=== PATIENT | female | born 1970 | race Caucasian/White ===

== ENCOUNTER 2021-03-02 06:49 | Inpatient (IN) | payer OTHER, MEDICAID, SELFPAY ==
[~2021-03-02] VITALS: Ht 162.6 cm; Wt 86.2 kg
[~2021-03-02 06:49] MED LIST: BACL10TA PO; ESCI10TA PO; OMEP20CA15 PO; TRAM50TA PO; trintellix PO
[2021-03-02 06:55] VITALS: BP_SYST 100
--- NOTE | 2021-03-02 07:00 | NUR ---
Patient triaged and placed in waiting room. VSS and patient appears in no acute distress at this time. Accompanied by SELF, awaiting available bed, and MD notified of need for MSE.
--- NOTE | 2021-03-02 07:20 | NUR ---
DR ALMAGUER OUT TO TRIAGE TO EVALUATE PT.
[2021-03-02 08:03] LABS: BASOPHILS % (AUTO) 0.3 % (0.0-2.0); EOSINOPHILS % (AUTO) 0.1 % (0.0-4.0); HEMATOCRIT 40.8 % (36-48); HEMOGLOBIN 13.9 g/dL (12.0-16.0); LYMPHOCYTES # (AUTO) 1.1 K/uL (1.0-5.5); LYMPHOCYTES % (AUTO) 9.9 % (20.5-51.5); MEAN CORPUSCULAR HEMOGLOBIN 33 pg (27-31); MEAN CORPUSCULAR HGB CONC 34 % (32-36); MEAN CORPUSCULAR VOLUME 96 fL (79.0-98.0); MONOCYTES # (AUTO) 0.5 K/uL (0.0-1.0); MONOCYTES % (AUTO) 4.1 % (1.7-9.3); NEUTROPHILS # (AUTO) 9.8 K/uL (1.8-7.7); NEUTROPHILS % (AUTO) 85.6 % (40.0-70.0); PLATELET COUNT (AUTO) 387 K/uL (130-430); RED BLOOD CELL COUNT(AUTO) 4.24 MIL/uL (4.2-6.2); RED CELL DISTRIBUTION WIDTH 14.2 % (9.0-15.0); WHITE BLOOD COUNT (AUTO) 11.4 K/uL (4.8-10.8)
[2021-03-02 08:21] LABS: ANION GAP 14 (5-15); CALCIUM 9.7 mg/dL (8.4-11.0); CHLORIDE 98 mmol/L (98-107); CREATININE 4.92 mg/dL (0.55-1.30); GLUCOSE 151 mg/dL (70-99); POTASSIUM 3.7 mmol/L (3.5-5.1); SODIUM SERUM 138 mmol/L (136-145); UREA NITROGEN, BLOOD 22 mg/dL (8-21)
[2021-03-02 08:22] LABS: PROTHROMBIN TIME 10.2 SECS (9.5-12.5)
[2021-03-02 08:26] LABS: ALANINE AMINOTRANSFERASE 39 U/L (12-78); ALBUMIN 3.9 g/dL (3.4-4.8); ASPARTATE AMINOTRANSFERASE 19 U/L (10-37); C-REACTIVE PROTEIN QUANT 3.3 mg/dL (0-0.5); TOTAL BILIRUBIN 0.6 mg/dL (0.0-1.0)
[2021-03-02 08:28] LABS: ALCOHOL, BLOOD < 3 mg/dL (<10); GFR AFRICAN AMERICAN 12 mL/min (>90)
[2021-03-02 08:41] LABS: ACETAMINOPHEN < 1 ug/mL (1-30)
[2021-03-02] MEDS ORDERED: NACL 0.9% 1,000 ML IV ONE (08:45)
--- NOTE | 2021-03-02 08:50 | NUR ---
Patient to ER bed 6 to gown for evaluation. Side rails up.
--- NOTE | 2021-03-02 08:55 | NUR ---
ER at bedside examining patient.
[2021-03-02 09:08] LABS: ACETONE, SERUM NEGATIVE (NEGATIVE)
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
--- NOTE | 2021-03-02 09:50 | NUR ---
# 22 gauge angiocath placed to left hand. Use of asceptic technique. Opsite placed over site. Blood return noted. Blood for lab drawn from site. Flushed with 10 cc of normal saline. No evidence of infiltration noted. Patient tolerated well.
--- NOTE | 2021-03-02 10:00 | NUR ---
NS 1l currently infusing
--- NOTE | 2021-03-02 10:38 | NUR ---
radha oden collected and sent to the lab
[2021-03-02] MEDS ORDERED: LISI20TA30 PO (11:56)
[2021-03-02] MEDS ORDERED: ATOR10TA68 PO (11:56)
[2021-03-02] MEDS ORDERED: LISI-652 PO (11:56)
--- NOTE | 2021-03-02 11:56 | NUR ---
Medication reconciliation completed with information provided by pt. Any prior medication reconciliation on file was reviewed and corrected.
--- NOTE | 2021-03-02 12:17 | NUR ---
darwin colleted and sent to the lab
[2021-03-02 12:29] LABS: BILIRUBIN,URINE 1+ (NEGATIVE); BLOOD, URINE 1+ (NEGATIVE); CLARITY/URINE SL CLOUDY (CLEAR); COLOR,URINE YELLOW (YELLOW); GLUCOSE,URINE NEGATIVE (NEGATIVE); KETONES,URINE NEGATIVE (NEGATIVE); LEUKOCYTE ESTERASE ,URINE NEGATIVE (NEGATIVE); NITRITE, URINE NEGATIVE (NEGATIVE); PROTEIN URINE 2+ (NEGATIVE); UROBILINOGEN,URINE 0.2 (0.2-1.0)
--- NOTE | 2021-03-02 12:30 | NUR ---
Patient will be admitted to care of Dr. Cannon. Admitted to Tele unit. Will go to room 102-a. Belongings list completed. Complete and up to date summary report printed. SBAR report to be given at bedside with opportunity for questions.iv site patent and infusing well
[2021-03-02 12:40] LABS: BARBITURATE, URINE NEGATIVE (NEG <=200); BENZODIAZEPINE, URINE NEGATIVE (NEG <=150); CANNABINOID, URINE NEGATIVE (NEG <=50); COCAINE, URINE NEGATIVE (NEG <=150); METHAMPHETAMINES SCREEN,URINE POSITIVE (NEG <=500); OPIATE, URINE NEGATIVE (NEG <=100); PHENCYCLIDINE SCREEN,URINE NEGATIVE (NEG <=25); UR TRICYCLIC ANTIDEPRESSANTS NEGATIVE (NEG <=300); URINE AMPHETAMINE POSITIVE (NEG <=500); URINE METHADONE NEGATIVE (NEG <=200); URINE OXYCODONE SCREEN NEGATIVE (NEG <=100); URINE PROPOXYPHENE SCREEN NEGATIVE (NEG <=300)
--- NOTE | 2021-03-02 13:09 | NUR ---
CONSULTATION PAGED/CALLED Reason for Consultation: [] renal fail; elevated BUN and Crea Person Who was Notified: [] JUDI Consulting Physician: [] DR BRONSON Sheet Metal Duct Installer Helper Specialty: [] NEPHRO Ordering Physician: [] DR CONTRERAS
[2021-03-02 13:25] VITALS: BP_SYST 111
[2021-03-02] MEDS ORDERED: traMADol HCL HCL 50 MG TABLET (ULTRAM) PO PRN ×2 (14:00→16:15)
--- NOTE | 2021-03-02 14:00 | NUR ---
Spoke to Dr. Fontenot informed regarding consult lab result, vitals sign and treatment
[2021-03-02 14:02] LABS: WBC,URINE 0-3 /HPF (0-3)
[2021-03-02 14:03] LABS: BACTERIA,URINE RARE /HPF (None Seen); CALCIUM OXALATE CRYSTALS,UR 0-10 /HPF (None Seen); HYALINE CASTS, URINE 0-10 /LPF (None Seen)
[2021-03-02 15:52] VITALS: BP_SYST 100
--- NOTE | 2021-03-02 16:30 | NUR ---
Patient is deep sleep but arousable . vitals sign within normal limits, Dr. Cannon informed
[2021-03-02] MEDS ORDERED: PRAMOXINE HCL/CALAMINE 177 ML LOTION TP PRN (17:30)
--- NOTE | 2021-03-02 18:00 | NUR ---
Ambulate to bathroom with assist no dizziness.
[2021-03-02] MEDS: NACL 0.9% 1,000 ML IV SCH (18:37)
[2021-03-02 20:00] VITALS: BP_SYST 114
--- NOTE | 2021-03-02 20:00 | NUR ---
INITIAL NOTES: PT IS AWAKE , NOT IN ANY ACUTE DISTRESS; PT STATED THAT SHE FEELS LIKE SHE IS CONFUSED ; BUT ABLE TO ANSWER ALL QUESTIONS PROPERLY . ASSESSMENT COMPLETED ; NOTICED MILD REDNESS TO HER FACE , GASTON THIGH WITH RASHES . PT RECEIVED OINTMENT ALREADY , NO C/O ANY ITCHING AT THIS TIME . VITALS ARE STABLE ;IV FLUID IS INFUSING TO THE L HAND 22 G , NO S/S OF ANY INFILTRATION NOTICED ; BED IN LOW AND LOCK POSITION , CALL VENTURA IN REACH ; BED ALARM IS ON . EDUCATED PT TO CALL FOR ASSIST .WILL CONTINUE TO MONITOR PT .
[2021-03-02] MEDS: BACLOFEN 10 MG TABLET PO SCH (20:19)
--- NOTE | 2021-03-02 20:36 | NUR ---
MD CALLED : PT ASKING FOR PAIN MEDICATION , PT RECEIVED BACLOFEN , PT HAS AN ORDER FOR TRAMADOL 50 MG PO Q6HRS , RN EDUCATED PT REGARDING THE PAIN MEDICATION , PT IS NOT WILLING TO TAKE TRAMADOL 50 MG PO , ASKING TO CALL NOW , CALLED AND TALKED WITH DR CONTRERAS , NOTICED THAT PER PT PT TAKES "TRAMADOL 100 MG PO BID NEEDED" , BUT DR CONTRERAS CHANGED TO TRAMADOL 50 MG PO Q6HRS PRN BUT PT STATED "IT DOESNT WORK FOR HER AND HER PAIN MANAGEMENT DOCTOR PROVIDED TRAMADOL 100 MG BID NEEDED AND IT WORKS WELL" . MD ORDERED TO CHANGE TRAMADOL 100 MG PO BID NEEDED .WILL ORDER CHANGE .
--- NOTE | 2021-03-02 22:50 | NUR ---
RESTROOM: ASSISTED PT TO RESTROOM , PT VOIDED ; ASSISTED PT BACK TO BED . PT IS COMFORTABLE ; NO C/O ANY PAIN AT THIS TIME .
--- NOTE | 2021-03-02 23:04 | NUR ---
CALLED : DR CONTRERAS CALLED , NOTIFIED MD THAT PT IS HAVING REDNESS TO HER ABDOMEN , PREVIOUSLY SHE HAD RASHES TO HER THIGH GASTON. AND ORDERED CALADRYL AND DAY SHIFT RN WAS ALREADY APPLIED IT , ORDERED BENADRYL 25 MG PO TID PRN FOR ITCHING AND RASHES . ORDER ENTERED
[2021-03-02] MEDS: DIPHENHYDRAMINE HCL 25 MG CAPSULE PO PRN (23:28)
[2021-03-03 01:00] VITALS: BP_SYST 122
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
[2021-03-03] MEDS: NACL 0.9% 1,000 ML IV SCH ×2 (06:44→21:49)
--- NOTE | 2021-03-03 07:15 | NUR ---
CLOSING NOTES: REPORT GIVEN TO RN , PT IS COMFORTABLE ; NOT IN ANY ACUTE DISTRESS.ALL NEEDS ATTENDED .
[2021-03-03 07:47] VITALS: BP_SYST 124
[2021-03-03 08:04] LABS: BASOPHILS % (AUTO) 0.4 % (0.0-2.0); EOSINOPHILS # (AUTO) 0.1 K/uL (0.0-0.4); EOSINOPHILS % (AUTO) 1.3 % (0.0-4.0); HEMATOCRIT 39.7 % (36-48); HEMOGLOBIN 13.3 g/dL (12.0-16.0); LYMPHOCYTES # (AUTO) 2.7 K/uL (1.0-5.5); LYMPHOCYTES % (AUTO) 38.7 % (20.5-51.5); MEAN CORPUSCULAR HEMOGLOBIN 33 pg (27-31); MEAN CORPUSCULAR HGB CONC 34 % (32-36); MEAN CORPUSCULAR VOLUME 97 fL (79.0-98.0); MONOCYTES # (AUTO) 0.6 K/uL (0.0-1.0); MONOCYTES % (AUTO) 7.9 % (1.7-9.3); NEUTROPHILS # (AUTO) 3.6 K/uL (1.8-7.7); NEUTROPHILS % (AUTO) 51.7 % (40.0-70.0); PLATELET COUNT (AUTO) 304 K/uL (130-430); RED BLOOD CELL COUNT(AUTO) 4.09 MIL/uL (4.2-6.2); RED CELL DISTRIBUTION WIDTH 14.2 % (9.0-15.0)
[2021-03-03] MEDS: PANTOPRAZOLE SODIUM 40 MG TAB PO SCH (08:23)
[2021-03-03] MEDS: ATORVASTATIN 10 MG TABLET PO SCH (08:24)
[2021-03-03] MEDS: lisinopriL 20 MG TABLET PO SCH (08:24)
[2021-03-03 08:37] LABS: CALCIUM 8.8 mg/dL (8.4-11.0); CREATININE 1.63 mg/dL (0.55-1.30); POTASSIUM 3.2 mmol/L (3.5-5.1)
[2021-03-03 09:01] LABS: PHOSPHORUS 2.6 mg/dL (2.7-4.5); THYROID STIMULATING HORMONE 0.63 uIu/mL (0.36-3.74)
[2021-03-03 11:14] VITALS: BP_SYST 134
[2021-03-03] MEDS: traMADol HCL HCL 50 MG TABLET (ULTRAM) PO PRN (13:35)
--- NOTE | 2021-03-03 15:32 | NUR ---
Seen and examined by the snaker Dr. Fontenot kidney function much improved with the hydration, encouraged to increase oral fluid intake verbalized understanding.
[2021-03-03] MEDS ORDERED: K PHOS 30 MM in NS 250 ML IV ONE (15:45)
[2021-03-03 16:05] VITALS: BP_SYST 127
[2021-03-03 20:00] VITALS: BP_SYST 136
--- NOTE | 2021-03-03 20:00 | NUR ---
INITIAL NOTES: PT IS AWAKE , NOT IN ANY ACUTE DISTRESS; ASSESSMENT COMPLETED ; NOTICED MILD REDNESS TO HER FACE , GASTON THIGH WITH RASHES , ABDOMEN IS RED , MD IS AWARE OF IT . NO C/O ANY ITCHING AT THIS TIME . VITALS ARE STABLE ;IV FLUID AND IS INFUSING TO THE L HAND 22 G , NO S/S OF ANY INFILTRATION NOTICED ; BED IN LOW AND LOCK POSITION , CALL VENTURA IN REACH ; BED ALARM IS ON . EDUCATED PT TO CALL FOR ASSIST .WILL CONTINUE TO MONITOR PT .
[2021-03-03] MEDS: BACLOFEN 10 MG TABLET PO SCH (21:50)
--- NOTE | 2021-03-04 00:10 | NUR ---
RN NOTES: PT IS SLEEPING , NOT IN ANY ACUTE DISTRESS ; RESPIRATION IS EVEN AND NON LABORED ; WILL CONTINUE TO MONITOR PT .
[2021-03-04 02:30] VITALS: BP_SYST 128
[2021-03-04] MEDS: traMADol HCL HCL 50 MG TABLET (ULTRAM) PO PRN ×3 (02:42→21:09)
--- NOTE | 2021-03-04 06:34 | NUR ---
CLOSING NOTES: PT IS SLEEPING COMFORTABLY , NOT IN ANY ACUTE DISTRESS; RESPIRATION IS EVEN AND NON LABORED ; ALL NEEDS ATTENDED ; WILL CONTINUE TO MONITOR AND WILL ENDORSE TO NEXT SHIFT NURSE .
[2021-03-04 06:35] LABS: BASOPHILS % (AUTO) 0.4 % (0.0-2.0); EOSINOPHILS # (AUTO) 0.1 K/uL (0.0-0.4); EOSINOPHILS % (AUTO) 1.2 % (0.0-4.0); HEMATOCRIT 36.6 % (36-48); HEMOGLOBIN 12.4 g/dL (12.0-16.0); LYMPHOCYTES # (AUTO) 2.6 K/uL (1.0-5.5); MEAN CORPUSCULAR HEMOGLOBIN 33 pg (27-31); MEAN CORPUSCULAR HGB CONC 34 % (32-36); MEAN CORPUSCULAR VOLUME 97 fL (79.0-98.0); MONOCYTES # (AUTO) 0.5 K/uL (0.0-1.0); MONOCYTES % (AUTO) 7.2 % (1.7-9.3); NEUTROPHILS # (AUTO) 3.6 K/uL (1.8-7.7); NEUTROPHILS % (AUTO) 53.2 % (40.0-70.0); PLATELET COUNT (AUTO) 277 K/uL (130-430); RED BLOOD CELL COUNT(AUTO) 3.79 MIL/uL (4.2-6.2); RED CELL DISTRIBUTION WIDTH 13.8 % (9.0-15.0); WHITE BLOOD COUNT (AUTO) 6.8 K/uL (4.8-10.8)
[2021-03-04 07:08] LABS: CALCIUM 8.5 mg/dL (8.4-11.0); CREATININE 0.83 mg/dL (0.55-1.30); PHOSPHORUS 3.2 mg/dL (2.7-4.5); POTASSIUM 3.6 mmol/L (3.5-5.1)
--- NOTE | 2021-03-04 08:00 | NUR ---
OPENING NOTES: PATIENT EATING DINNER. NO SIGNS OF ACUTE DISTRESS NOTED. IV INFUSING WELL. FALL AND SAFETY PRECAUTION REINFORCED. CALL LIGHT WITHIN REACH.
[2021-03-04] MEDS: NACL 0.9% 1,000 ML IV SCH ×2 (09:27→22:51)
[2021-03-04] MEDS: ATORVASTATIN 10 MG TABLET PO SCH (09:29)
[2021-03-04] MEDS: PANTOPRAZOLE SODIUM 40 MG TAB PO SCH (09:29)
[2021-03-04 09:30] VITALS: BP_SYST 118
[2021-03-04] MEDS: lisinopriL 20 MG TABLET PO SCH (09:30)
[2021-03-04 12:51] VITALS: BP_SYST 119
[2021-03-04 18:28] VITALS: BP_SYST 151
--- NOTE | 2021-03-04 18:50 | NUR ---
CLOSING NOTES: PATIENT EATING DINNER. NO SIGNS OF ACUTE DISTRESS NOTED. IV PATENT AND INFUSING WELL. FALL AND SAFETY REINFORCED. CALL LIGHT WITHIN REACH.
--- NOTE | 2021-03-04 19:30 | NUR ---
Opening note Received report from day Nurse. Pt sleeping and lying on the side. Awake to voice, alertx4, IVF running on left hand, no complications at this time. Non labored, no SOB at this time. No distress but complaint of back pain. All needs attended to, call light within reach. Bed to lowest/locked. On fall/aspiration precaution.
[2021-03-04 20:35] VITALS: BP_SYST 120
[2021-03-04] MEDS: BACLOFEN 10 MG TABLET PO SCH (21:08)
[2021-03-05] VITALS: BP_SYST 124
--- NOTE | 2021-03-05 02:00 | NUR ---
note pt sleep, no distress noted at this time
[2021-03-05] MEDS: DIPHENHYDRAMINE HCL 25 MG CAPSULE PO PRN ×3 (04:29→21:41)
--- NOTE | 2021-03-05 06:21 | NUR ---
closing note Pt resting, awake easily to voice and touch. No respiratory distress on room air. No complaint or discomfort. IV patent and intact IVF running. Pt alert x4. Call light within reach, bed to lowest/locked/alarmed. On fall/aspiration precaution.
[2021-03-05 07:33] LABS: BASOPHILS % (AUTO) 0.6 % (0.0-2.0); EOSINOPHILS # (AUTO) 0.1 K/uL (0.0-0.4); EOSINOPHILS % (AUTO) 1.5 % (0.0-4.0); HEMATOCRIT 34.7 % (36-48); HEMOGLOBIN 11.8 g/dL (12.0-16.0); LYMPHOCYTES # (AUTO) 3.1 K/uL (1.0-5.5); LYMPHOCYTES % (AUTO) 37.6 % (20.5-51.5); MEAN CORPUSCULAR HEMOGLOBIN 33 pg (27-31); MEAN CORPUSCULAR HGB CONC 34 % (32-36); MEAN CORPUSCULAR VOLUME 96 fL (79.0-98.0); MONOCYTES # (AUTO) 0.5 K/uL (0.0-1.0); MONOCYTES % (AUTO) 6.3 % (1.7-9.3); NEUTROPHILS # (AUTO) 4.4 K/uL (1.8-7.7); PLATELET COUNT (AUTO) 270 K/uL (130-430); RED BLOOD CELL COUNT(AUTO) 3.61 MIL/uL (4.2-6.2); RED CELL DISTRIBUTION WIDTH 13.4 % (9.0-15.0); WHITE BLOOD COUNT (AUTO) 8.2 K/uL (4.8-10.8)
[2021-03-05 08:00] VITALS: BP_SYST 149
[2021-03-05] MEDS: PANTOPRAZOLE SODIUM 40 MG TAB PO SCH (08:43)
[2021-03-05] MEDS: lisinopriL 20 MG TABLET PO SCH (08:43)
[2021-03-05] MEDS: ATORVASTATIN 10 MG TABLET PO SCH (08:43)
[2021-03-05 09:56] LABS: CALCIUM 8.6 mg/dL (8.4-11.0); CREATININE 0.76 mg/dL (0.55-1.30); POTASSIUM 3.8 mmol/L (3.5-5.1)
[2021-03-05] MEDS: traMADol HCL HCL 50 MG TABLET (ULTRAM) PO PRN ×2 (11:57→20:25)
[2021-03-05 12:00] VITALS: BP_SYST 134
--- NOTE | 2021-03-05 12:00 | NUR ---
rec'd report from offgoing nurse at the change of shift assess pt a/a/ox4 overall appearances fair c/o rash all over her body stated she had it since being admitted physician is already aware of it benadryl was given with effect later pt wanted ultram for generalized discomfort with effect comfort and safety maintained no acute distress noted
[2021-03-05] MEDS: NACL 0.9% 1,000 ML IV SCH (12:01)
[2021-03-05 16:00] VITALS: BP_SYST 142
--- NOTE | 2021-03-05 19:30 | NUR ---
Opening note Pt resting, Eyes closed, awake easily to voice and touch. No respiratory distress on room air. No complaint or discomfort. IV patent and intact Fluids running. Pt alert x4, All needs provided. Call light within reach, bed to lowest/locked. On fall/aspiration precaution. Will continue to monitor and make frequent rounds.
[2021-03-05] MEDS: BACLOFEN 10 MG TABLET PO SCH (20:24)
[2021-03-05 20:33] VITALS: BP_SYST 146
[2021-03-06] VITALS: BP_SYST 122
--- NOTE | 2021-03-06 02:00 | NUR ---
Note Pt resting comfortable, no distress noted at this time.
--- NOTE | 2021-03-06 06:22 | NUR ---
closing note Pt resting, awake easily to voice and touch. No respiratory distress on room air. No complaint or discomfort. IV patent and intact on SL. Pt alert x4. Call light within reach, bed to lowest/locked/alarmed. On fall/aspiration precaution.
[2021-03-06 08:00] VITALS: BP_SYST 142
--- NOTE | 2021-03-06 08:00 | NUR ---
patient is on bed eating breakfast. ate good. complained of back pain meds given as ordered. also ask for itchiness at the back. given as ordered. ambulatory to her needs .
[2021-03-06] MEDS: PANTOPRAZOLE SODIUM 40 MG TAB PO SCH (09:09)
[2021-03-06] MEDS: lisinopriL 20 MG TABLET PO SCH (09:10)
[2021-03-06] MEDS: traMADol HCL HCL 50 MG TABLET (ULTRAM) PO PRN ×3 (09:11→20:18)
[2021-03-06] MEDS: DIPHENHYDRAMINE HCL 25 MG CAPSULE PO PRN ×2 (09:12→20:52)
[2021-03-06] MEDS: ATORVASTATIN 10 MG TABLET PO SCH (09:13)
[2021-03-06 12:00] VITALS: BP_SYST 132
[2021-03-06 12:08] LABS: MICROALBUMIN URINE RANDOM 102.4 ug/ml (NOT ESTABLISHED)
[2021-03-06 16:00] VITALS: BP_SYST 128
--- NOTE | 2021-03-06 18:49 | NUR ---
no complaints of pain or itchiness for the rest of my shift. increased fluid intake encourage. afebrile
[2021-03-06 20:00] VITALS: BP_SYST 135
[2021-03-06] MEDS: BACLOFEN 10 MG TABLET PO SCH (20:17)
--- NOTE | 2021-03-06 20:18 | NUR ---
TRAMADOL 100MG GIVEN PO PER PT'S REQUEST FOR C/O MID AND LOWER BACK PAIN. PT DECLINED BED ALARM. PT STATED SHE HAS BEEN ON TRAMADOL FOR 10 YEARS. CALL LIGHT IS WITH PT AND BED IS IN THE LOWEST/LOCKED POSITIONS.
--- NOTE | 2021-03-06 20:30 | NUR ---
PT TOOK A SHOWER IN HER ROOM INDEPENDENTLY AFTER HER IV SITE WAS COVERED WITH PLASTIC AND TAPE.
--- NOTE | 2021-03-06 20:52 | NUR ---
BENADRYL 25MG WAS GIVEN PO PER PT'S REQUEST FOR C/O ITCHING.
--- NOTE | 2021-03-07 06:55 | NUR ---
PT IS RESTING QUIETLY IN BED. ALL PT'S NEEDS WERE ATTENDED TO. WILL ENDORSE TO DAY SHIFT NURSE.
[2021-03-07 08:00] VITALS: BP_SYST 121
--- NOTE | 2021-03-07 08:00 | NUR ---
PATIENT AWAKE SAID SHE HAD HER EARLY SHOWER TODAY. LOOKS REALLY HAPPY BUT STILL HAD HER PAIN AT HER BACK. NO ITCHINESS STATED TODAY. ATE BREAKFAST 100%. VITAL SIGNS STABLE.
[2021-03-07] MEDS: lisinopriL 20 MG TABLET PO SCH (08:58)
[2021-03-07] MEDS: ATORVASTATIN 10 MG TABLET PO SCH (08:58)
[2021-03-07] MEDS: PANTOPRAZOLE SODIUM 40 MG TAB PO SCH (08:58)
[2021-03-07] MEDS: traMADol HCL HCL 50 MG TABLET (ULTRAM) PO PRN (08:58)
[2021-03-07 13:03] VITALS: BP_SYST 127
== END 2021-03-07 13:25 | disposition home or self-care (01) | DRG 682 ==
LOC: SED 06:49 → STU 09:02 → SMU 03-03 15:28
PROVIDERS: ADMIT Internal Medicine; ATTEND Internal Medicine
DX: N17.0 Acute kidney failure with tubular necrosis (principal); G92 Toxic encephalopathy; N39.0 Urinary tract infection, site not specified; F32.9 Major depressive disorder, single episode, unspecified; F41.9 Anxiety disorder, unspecified; K21.9 Gastro-esophageal reflux disease without esophagitis; K44.9 Diaphragmatic hernia without obstruction or gangrene; L29.9 Pruritus, unspecified; F17.210 Nicotine dependence, cigarettes, uncomplicated; G89.29 Other chronic pain; Z20.822 Contact with and (suspected) exposure to COVID-19; I12.9 Hypertensive chronic kidney disease with stage 1 through stage 4 chronic kidney disease, or unspecified chronic kidney disease; N18.9 Chronic kidney disease, unspecified; Z80.3 Family history of malignant neoplasm of breast
CPT/HCPCS: 36415; 70450-TC; 71045; 76376; 76770; 80048; 80053; 80307; 81000; 82009; 82043; 82140; 82550; 82570; 83605; 83735; 83880; 84100; 84302; 84443; 84484; 84550; 85025; 85379; 85610-TC; 85730-TC; 86140; 87086; 93005; 97116-GP; G0378; G0480; G0481; G0482; J7050; Q0163

== ENCOUNTER 2022-10-14 16:03 | Inpatient (IN) | payer OTHER ==
[~2022-10-14] VITALS: Ht 162.6 cm; Wt 90.3 kg
[~2022-10-14 16:03] MED LIST changes: +ATOR10TA68 PO; -ESCI10TA PO; +LISI20TA30 PO; -trintellix PO
[2022-10-14 16:28] VITALS: BP_SYST 169
[2022-10-14] MEDS ORDERED: ONDANSETRON HCL 4 MG/2 ML VIAL IVP ONE ×2 (17:15→18:45)
[2022-10-14] MEDS ORDERED: NACL 0.9% 2,000 ML IV ONE (17:15)
[2022-10-14 17:16] LABS: BILIRUBIN,URINE 2+ (NEGATIVE); BLOOD, URINE TRACE (NEGATIVE); CLARITY/URINE CLOUDY (CLEAR); COLOR,URINE YELLOW (YELLOW); GLUCOSE,URINE TRACE (NEGATIVE); KETONES,URINE 1+ (NEGATIVE); LEUKOCYTE ESTERASE ,URINE NEGATIVE (NEGATIVE); NITRITE, URINE POSITIVE (NEGATIVE); PROTEIN URINE 2+ (NEGATIVE)
[2022-10-14 17:29] LABS: BASOPHILS % (AUTO) 0.3 % (0.0-2.0); EOSINOPHILS % (AUTO) 0.1 % (0.0-4.0); HEMATOCRIT 42.6 % (36-48); HEMOGLOBIN 14.9 g/dL (12.0-16.0); LYMPHOCYTES # (AUTO) 1.3 K/uL (1.0-5.5); LYMPHOCYTES % (AUTO) 11.9 % (20.5-51.5); MEAN CORPUSCULAR HEMOGLOBIN 34 pg (27-31); MEAN CORPUSCULAR HGB CONC 35 % (32-36); MEAN CORPUSCULAR VOLUME 97 fL (79.0-98.0); MONOCYTES # (AUTO) 0.8 K/uL (0.0-1.0); MONOCYTES % (AUTO) 6.9 % (1.7-9.3); NEUTROPHILS # (AUTO) 8.9 K/uL (1.8-7.7); NEUTROPHILS % (AUTO) 80.8 % (40.0-70.0); PLATELET COUNT (AUTO) 415 K/uL (130-430); RED CELL DISTRIBUTION WIDTH 15.4 % (9.0-15.0); WHITE BLOOD COUNT (AUTO) 11.1 K/uL (4.8-10.8)
[2022-10-14] MEDS ORDERED: VORT10TA PO (17:41)
[2022-10-14] MEDS ORDERED: IBUP-1969 PO (17:41)
[2022-10-14 17:45] LABS: ALBUMIN 3.1 g/dL (3.4-4.8); CREATININE 1.02 mg/dL (0.55-1.30); TOTAL BILIRUBIN 1.8 mg/dL (0.0-1.0)
[2022-10-14 17:51] LABS: BACTERIA,URINE MODERATE /HPF (None Seen); HYALINE CASTS, URINE 0-10 /LPF (None Seen); RBC,URINE 0-3 /HPF (0-3)
[2022-10-14] MEDS ORDERED: POTASSIUM CHLORIDE 20 MEQ/PKT PACKET PO ONE (18:30)
[2022-10-14] MEDS ORDERED: MORPHINE 4 MG INJ. 4 MG/ML VIAL IVP ONE (18:45)
[2022-10-14] MEDS: D5/0.45 NS 1,000 ML IV SCH (19:15)
[2022-10-14 20:49] VITALS: BP_SYST 134
[2022-10-14] MEDS ORDERED: ONDANSETRON HCL 4 MG/2 ML VIAL IVP PRN (22:00)
[2022-10-14] MEDS ORDERED: ACETAMINOPHEN 325 MG TABLET PO PRN (22:00)
[2022-10-14] MEDS: traMADol HCL HCL 50 MG TABLET (ULTRAM) PO PRN (23:46)
[2022-10-14] MEDS: IBUPROFEN 600 MG TABLET PO PRN (23:49)
[2022-10-15 02:00] VITALS: BP_SYST 125
[2022-10-15] MEDS: D5/0.45 NS 1,000 ML IV SCH ×2 (05:51→15:46)
[2022-10-15 06:46] LABS: BASOPHILS # (AUTO) 0.1 K/uL (0.0-0.2); BASOPHILS % (AUTO) 0.9 % (0.0-2.0); EOSINOPHILS # (AUTO) 0.1 K/uL (0.0-0.4); EOSINOPHILS % (AUTO) 0.7 % (0.0-4.0); HEMATOCRIT 39.7 % (36-48); HEMOGLOBIN 13.7 g/dL (12.0-16.0); LYMPHOCYTES # (AUTO) 3.1 K/uL (1.0-5.5); MEAN CORPUSCULAR HEMOGLOBIN 34 pg (27-31); MEAN CORPUSCULAR HGB CONC 34 % (32-36); MEAN CORPUSCULAR VOLUME 99 fL (79.0-98.0); MONOCYTES # (AUTO) 0.7 K/uL (0.0-1.0); MONOCYTES % (AUTO) 7.5 % (1.7-9.3); NEUTROPHILS # (AUTO) 4.8 K/uL (1.8-7.7); NEUTROPHILS % (AUTO) 54.9 % (40.0-70.0); PLATELET COUNT (AUTO) 359 K/uL (130-430); RED BLOOD CELL COUNT(AUTO) 4.01 MIL/uL (4.2-6.2); RED CELL DISTRIBUTION WIDTH 15.5 % (9.0-15.0); WHITE BLOOD COUNT (AUTO) 8.7 K/uL (4.8-10.8)
[2022-10-15 07:23] LABS: ALBUMIN 2.7 g/dL (3.4-4.8); CALCIUM 8.3 mg/dL (8.4-11.0); CREATININE 0.97 mg/dL (0.55-1.30); PHOSPHORUS 2.5 mg/dL (2.7-4.5); TOTAL BILIRUBIN 1.5 mg/dL (0.0-1.0)
[2022-10-15 08:00] VITALS: BP_SYST 118
[2022-10-15] MEDS: IBUPROFEN 600 MG TABLET PO PRN ×2 (08:24→20:48)
[2022-10-15] MEDS: PANTOPRAZOLE SODIUM 40 MG TAB PO SCH (08:25)
[2022-10-15] MEDS: lisinopriL 20 MG TABLET PO SCH (08:25)
[2022-10-15] MEDS ORDERED: POTASSIUM CHLORIDE 20 MEQ TAB.PRT.SR PO ONE (08:45)
[2022-10-15] MEDS ORDERED: NON-FORMULARY MEDICATION (Vortioxetine Hydrobromide (Brintellix) 10 MG) PO SCH (09:00)
[2022-10-15] MEDS ORDERED: OMEPRAZOLE Non-Formulary 20 MG CAPSULE.DR PO SCH (09:00)
[2022-10-15] MEDS ORDERED: Vortioxetine Hydrobromide (Trintellix) 10 MG PO SCH (09:00)
[2022-10-15] MEDS ORDERED: DIPHENHYDRAMINE HCL 25 MG CAPSULE PO PRN (10:30)
[2022-10-15 11:23] VITALS: BP_SYST 123
[2022-10-15] MEDS: VORTIOXETINE 10 MG PO SCH (11:46)
[2022-10-15 15:46] VITALS: BP_SYST 131
[2022-10-15] MEDS: traMADol HCL HCL 50 MG TABLET (ULTRAM) PO PRN (17:50)
[2022-10-15 20:00] VITALS: BP_SYST 139
[2022-10-15] MEDS ORDERED: ATORVASTATIN 10 MG TABLET PO SCH (21:00)
[2022-10-15] MEDS ORDERED: BACLOFEN 10 MG TABLET PO SCH (21:00)
[2022-10-16 00:12] VITALS: BP_SYST 131
[2022-10-16] MEDS: D5/0.45 NS 1,000 ML IV SCH ×2 (03:21→10:37)
[2022-10-16 06:29] LABS: BASOPHILS # (AUTO) 0.1 K/uL (0.0-0.2); BASOPHILS % (AUTO) 1.1 % (0.0-2.0); EOSINOPHILS # (AUTO) 0.1 K/uL (0.0-0.4); EOSINOPHILS % (AUTO) 1.7 % (0.0-4.0); HEMATOCRIT 38.1 % (36-48); LYMPHOCYTES # (AUTO) 2.5 K/uL (1.0-5.5); LYMPHOCYTES % (AUTO) 37.8 % (20.5-51.5); MEAN CORPUSCULAR HEMOGLOBIN 34 pg (27-31); MEAN CORPUSCULAR HGB CONC 34 % (32-36); MEAN CORPUSCULAR VOLUME 99 fL (79.0-98.0); MONOCYTES # (AUTO) 0.4 K/uL (0.0-1.0); MONOCYTES % (AUTO) 6.8 % (1.7-9.3); NEUTROPHILS # (AUTO) 3.4 K/uL (1.8-7.7); NEUTROPHILS % (AUTO) 52.6 % (40.0-70.0); PLATELET COUNT (AUTO) 315 K/uL (130-430); RED BLOOD CELL COUNT(AUTO) 3.85 MIL/uL (4.2-6.2); WHITE BLOOD COUNT (AUTO) 6.5 K/uL (4.8-10.8)
[2022-10-16 07:14] LABS: ALBUMIN 2.3 g/dL (3.4-4.8); BILIRUBIN,DIRECT 0.3 mg/dL (0.0-0.3); CALCIUM 7.9 mg/dL (8.4-11.0); CREATININE 0.78 mg/dL (0.55-1.30); TOTAL BILIRUBIN 0.8 mg/dL (0.0-1.0)
[2022-10-16 07:30] LABS: PROTHROMBIN TIME 10.2 SECS (9.5-12.5)
[2022-10-16] MEDS ORDERED: SIMETHICONE 40 MG/0.6 ML ML ONE (07:43)
[2022-10-16] MEDS ORDERED: ONDANSETRON HCL 4 MG/2 ML VIAL ONE (07:43)
[2022-10-16] MEDS ORDERED: DIPHENHYDRAMINE INJ 50 MG/ML VIAL ONE (07:43)
[2022-10-16] MEDS ORDERED: MEPERIDINE 50 MG/ML VIAL ONE (07:44)
[2022-10-16] MEDS: MIDAZOLAM HCL 5 MG/5 ML VIAL ONE ×4 (07:51→07:59)
[2022-10-16] MEDS ORDERED: MEPERIDINE 50 MG/ML VIAL IV ONE ×2 (07:53→07:57)
[2022-10-16] MEDS: PANTOPRAZOLE SODIUM 40 MG TAB PO SCH (09:12)
[2022-10-16] MEDS: lisinopriL 20 MG TABLET PO SCH (09:13)
[2022-10-16] MEDS ORDERED: PRO40 PO ×2 (11:13)
[2022-10-16] MEDS ORDERED: METR-154 PO ×2 (11:13)
[2022-10-16] MEDS ORDERED: LEVO-62 PO ×2 (11:13)
[2022-10-16 11:17] VITALS: BP_SYST 114
[2022-10-16] MEDS ORDERED: POTASSIUM CHLORIDE 20 MEQ TAB.PRT.SR PO ONE (12:30)
[2022-10-16] MEDS: VORTIOXETINE 10 MG PO SCH (13:27)
[2022-10-16] MEDS: traMADol HCL HCL 50 MG TABLET (ULTRAM) PO PRN (13:30)
[2022-10-16 15:18] VITALS: BP_SYST 114
[2022-10-16 15:22] VITALS: BP_SYST 149
== END 2022-10-16 22:49 | disposition home or self-care (01) | DRG 394 ==
LOC: SED 16:03 → SMU 18:33
PROVIDERS: ADMIT Preventive Medicine Preventive Medicine/Occupational Environmental Medicine; ATTEND Preventive Medicine Preventive Medicine/Occupational Environmental Medicine
PROC: 0DB68ZX Excision of Stomach, Via Natural or Artificial Opening Endoscopic, Diagnostic (ICD-10-PCS; principal; 2022-10-16 10:00)
DX: K65.4 Sclerosing mesenteritis (principal); E44.0 Moderate protein-calorie malnutrition; N39.0 Urinary tract infection, site not specified; R65.10 Systemic inflammatory response syndrome (SIRS) of non-infectious origin without acute organ dysfunction; K29.70 Gastritis, unspecified, without bleeding; E86.0 Dehydration; E87.6 Hypokalemia; K21.9 Gastro-esophageal reflux disease without esophagitis; G89.29 Other chronic pain; E88.09 Other disorders of plasma-protein metabolism, not elsewhere classified; R73.9 Hyperglycemia, unspecified; R74.01 Elevation of levels of liver transaminase levels; K76.0 Fatty (change of) liver, not elsewhere classified; E78.5 Hyperlipidemia, unspecified; I12.9 Hypertensive chronic kidney disease with stage 1 through stage 4 chronic kidney disease, or unspecified chronic kidney disease; N18.9 Chronic kidney disease, unspecified; Z20.822 Contact with and (suspected) exposure to COVID-19; Z90.49 Acquired absence of other specified parts of digestive tract; Z68.34 Body mass index [BMI] 34.0-34.9, adult
CPT/HCPCS: 36415; 76376; 76700-TC; 80048; 80053; 80076; 81000; 83690; 83735; 84100; 85025; 85610-TC; 87081; 87086; 87230-TC; 88305; 88312; 88313; 96361; 96374; 96375; 96376; 99285; J1200; J2175; J2250; J2270; J2405; Q0163